=== PATIENT | female | born 1930 | race Caucasian/White ===

== ENCOUNTER 2017-06-28 16:56 | Emergency (ER) | payer OTHER, MEDICARE ==
[~2017-06-28] VITALS: Ht 160 cm; Wt 65.8 kg
[~2017-06-28 16:56] MED LIST: GLUCOSAMINE &1 EACH PO; IBUPROFEN 600600 M1 GT; LORTAB 5 MG/5001 TA1 PO; LUTEIN 15 MG S1 EACH PO; MICARDIS 20MG T20 M1 PO; MULTIVITAMIN W1 EAC5 PO; PROTONIX40 M2 PO; VITAMIN C + RO500 MG PO
[2017-06-28] MEDS ORDERED: SENOKOT-S1 TA1 PO (19:28)
[2017-06-28] MEDS ORDERED: LIORESAL 10 MG10 MG PO (19:28)
[2017-06-28] MEDS ORDERED: HYDROCODONE-AP1 EAC6 PO (19:28)
[2017-06-28 19:30] VITALS: BP 161/71
== END 2017-06-28 19:31 | disposition home or self-care (01) ==
LOC: ER 16:56
DX: S32.030A Wedge compression fracture of third lumbar vertebra, initial encounter for closed fracture (principal); M48.06 Spinal stenosis, lumbar region; I10 Essential (primary) hypertension; Z87.442 Personal history of urinary calculi; Z87.440 Personal history of urinary (tract) infections; Z90.49 Acquired absence of other specified parts of digestive tract; X58.XXXA Exposure to other specified factors, initial encounter; Y93.89 Activity, other specified; Y92.89 Other specified places as the place of occurrence of the external cause; Y99.8 Other external cause status

== ENCOUNTER 2017-06-30 16:33 | Inpatient (IN) | payer OTHER, MEDICARE ==
[~2017-06-30] VITALS: Ht 160 cm; Wt 68.9 kg
--- NOTE | ~2017-06-30 | HC ---
[facility] [place] [address] CONSULTATION Name: XIOMY ANDRADE Room #: 406-P [facility] M.RNila#: [id number] Admission: 06/30/17 Attend Phys: Lane Mansfield MD Discharge: Date of : 30 Report #: [id number] THIS REPORT FOR: //name// CC: Lane Loving DATE OF SERVICE: 07/01/2017 HISTORY OF PRESENT ILLNESS: The patient is an 86-year-old white female with history of hypertension, admitted with back pain. She is premorbidly independent and ambulatory without gait aids. She was having worsening problems with increasing back pain after returning back from a trip to [facility]. She was walking more and more hunched over, was trying to take [place]. She went to the Emergency Department and tried to handle without any intervention. The pain came too severe and she was brought in by a lady friend that lives with her. The patient was sent for MRI and was noted to have an acute L1 compression fracture with acute subacute L3 compression fracture. She has a severe lumbar spinal stenosis at L3-L5. She is noted to have a T12-L1 disk protrusion without annular tear. She has now been taken down for a kyphoplasty. I am seeing her in Rehabilitation Medicine consultation. PAST MEDICAL HISTORY: Includes hypertension, laparoscopic cholecystectomy, left kidney stone removal in 2008, frequent urinary tract infections, spinal stenosis, arthritis, and osteoporosis. HABITS: No history of tobacco or alcohol abuse. ALLERGIES: No known drug allergies. MEDICATIONS: Please see the full medication listing. SOCIAL HISTORY: Lives in a house, two floors. There is a lady friend who stays upstairs and the patient stays on the ground floor. There are two steps in. She was only using a cane or a walker for the past week other than that had been independent without gait aids. She was driving in the community as noted. 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 REVIEW OF SYSTEMS: She is a little groggy, just getting back from the procedure. No current complaints of chest pain, shortness of breath or abdominal discomfort. She is uncertain if the back pain is better not. Did not offer any complaints of headache or other new focal extremity pain complaints. PHYSICAL EXAMINATION: GENERAL: Pleasant 86-year-old white female appeared a little younger than stated age. [facility] [address] [place] [address] CONSULTATION Name: XIOMY ANDRADE Room #: 406-P [facility] M.R.#: [id number] Admission: 06/30/17 Attend Phys: Lane Mansfield MD Discharge: Date of : 30 Report #: [id number] VITAL SIGNS: Last recorded temperature 98.2, pulse 76, respirations 18, and blood pressure 153/68. She is at a little groggy, but responsive. Facies appeared symmetric. HEENT: Appeared to be benign. EXTREMITIES: Functional range of motion of both upper extremities without obvious focal weakness. DTRs are trace to 1. In her lower extremities, there is no focal calf swelling. She can dorsiflex both ankles with good strength. She was able to abduct and adduct both lower extremities with strength probably at least a grade 4-/5. Tone appeared to be intact. There was no clonus. I did not get her up. ASSESSMENT: An 86-year-old white female with the following problem list: 1. Acute L1 compression fracture with acute subacute L3 compression fracture, is now status post a kyphoplasty procedure. 2. Severe lumbar spinal stenosis L3-L5 with T12-L1 disk extrusion and an annular tear. 3. Pain management. 4. History of hypertension. 5. Osteoporosis. 6. Degenerative arthritis. 7. Frequent urinary tract infections. 8. Left kidney stone removal. PLAN: Therapies are to evaluate her once she is further stabilized post the kyphoplasty procedure. I do not see that she would meet medical necessity criteria for an acute in-hospital inpatient rehabilitation stay on [address] [place] [address] at this time. manager intelligence will need to further assist regarding rehab therapy issues as she further progresses. We will follow from the periphery at this point. Thank you for asking us to assist in this patient's care. By: [id number] Chucky Gasca MD /
[~2017-06-30 16:33] MED LIST changes: +HYDROCODONE-AP1 EAC6 PO; -IBUPROFEN 600600 M1 GT; +IBUPROFEN 600600 M1 PO; +LIORESAL 10 MG10 MG PO; +SENOKOT-S1 TA1 PO
[2017-06-30 16:48] VITALS: BP 178/78
[2017-06-30] MEDS ORDERED: ALLOPURINOL 10100 M1 PO (16:58)
[2017-06-30 17:10] LABS: HEMATOCRIT 43.6 % (37.0-47.0); HEMOGLOBIN 14.8 gm/dL (12.0-15.0); MCH 31.5 pg (26.0-34.0); MCV 92.6 fL (80.0-100.0); RBC 4.71 mil/uL (4.20-5.00); WBC 6.6 thou/uL (4.0-11.0)
[2017-06-30 17:21] LABS: CALCIUM 9.8 mg/dL (8.5-10.1); POTASSIUM 3.9 mmol/L (3.5-5.1)
[2017-06-30 19:10] VITALS: BP 122/45
[2017-07-01] VITALS (9 sets, daily range): BP systolic 138–168; BP diastolic 61–87
[2017-07-01 03:58] LABS: HEMATOCRIT 39.1 % (37.0-47.0); HEMOGLOBIN 13.1 gm/dL (12.0-15.0); MCH 31.1 pg (26.0-34.0); MCHC 33.5 g/dL (28.0-37.0); MCV 92.8 fL (80.0-100.0); RBC 4.22 mil/uL (4.20-5.00); RDW 13.8 % (10.5-14.5); WBC 5.3 thou/uL (4.0-11.0)
[2017-07-01 04:07] LABS: CALCIUM 9.2 mg/dL (8.5-10.1); CREATININE 0.8 mg/dL (0.6-1.0); POTASSIUM 3.6 mmol/L (3.5-5.1)
[2017-07-01 04:09] LABS: PROTIME 10.6 Seconds (9.3-11.4)
[2017-07-02 04:00] VITALS: BP 160/46
[2017-07-02 07:22] VITALS: BP 137/76
[2017-07-02 18:30] VITALS: BP 118/61; BP 119/66
[2017-07-02 20:00] VITALS: BP 134/61
[2017-07-03 04:51] VITALS: BP 118/57
[2017-07-03 08:00] VITALS: BP 152/70
[2017-07-03 16:36] VITALS: BP 146/69
[2017-07-03 23:00] VITALS: BP 139/60
[2017-07-04 04:37] VITALS: BP 125/70
[2017-07-04 08:00] VITALS: BP 149/64
[2017-07-04] MEDS ORDERED: SENOKOT-S1 TA1 PO (14:48)
[2017-07-04] MEDS ORDERED: COLACE100 MG PO (14:48)
== END 2017-07-04 16:04 | DRG 516 ==
LOC: ER 16:33 → 4N 17:31 → EROBS 17:31 → 4N 17:31
PROVIDERS: Emergency Medicine; Internal Medicine
PROC: 0QU03JZ Supplement Lumbar Vertebra with Synthetic Substitute, Percutaneous Approach (ICD-10-PCS; principal; 2017-07-04)
PROC: 0QS03ZZ Reposition Lumbar Vertebra, Percutaneous Approach (ICD-10-PCS; principal; 2017-07-04)
DX: M48.56XA Collapsed vertebra, not elsewhere classified, lumbar region, initial encounter for fracture (principal); N39.0 Urinary tract infection, site not specified; I10 Essential (primary) hypertension; M81.0 Age-related osteoporosis without current pathological fracture; M19.90 Unspecified osteoarthritis, unspecified site; Z66 Do not resuscitate; Z87.442 Personal history of urinary calculi; Z79.899 Other long term (current) drug therapy; Z90.49 Acquired absence of other specified parts of digestive tract
CPT/HCPCS: 10091